=== PATIENT | male | born 1985 | race Caucasian/White ===

== ENCOUNTER 2020-07-13 01:29 | Emergency (ER) | payer OTHER ==
[2020-07-13 01:43] VITALS: BP 131/83; PULSE 60; TEMP 98.1; BMI 27.8
[2020-07-13] MEDS ORDERED: DIPHTH,PERTUSS(ACELL),TET 0.5 ML DISP.SYRIN IM ONE ×2 (02:58→03:28)
[2020-07-13] MEDS ORDERED: ACETAMINOPHEN 325 MG TABLET (FP) PO ONE (02:58)
[2020-07-13] MEDS ORDERED: ACETAMINOPHEN 325 MG TABLET (FP) ONE (03:27)
[2020-07-13] MEDS ORDERED: LIDOCAINE 1%/EPI 1:100000 (20 ML MULTI DOSE VIAL) IJ ONE (04:03)
[2020-07-13] MEDS ORDERED: LIDOCAINE 1%/EPI 1:100000 (20 ML MULTI DOSE VIAL) ONE (04:04)
[2020-07-13] MEDS ORDERED: BACITRACIN 15 GM TUBE TOPICAL OINTMENT TP ONE (04:10)
== END 2020-07-13 04:24 | disposition home or self-care (01) ==
LOC: JER 01:29
PROC: 0JQ10ZZ Repair Face Subcutaneous Tissue and Fascia, Open Approach (ICD-10-PCS; principal; 2020-07-13)
PROC: 3E0234Z Introduction of Serum, Toxoid and Vaccine into Muscle, Percutaneous Approach (ICD-10-PCS; 2020-07-13)
DX: S09.90XA Unspecified injury of head, initial encounter (principal); S01.81XA Laceration without foreign body of other part of head, initial encounter
CPT/HCPCS: 70450-TC; 72125-TC; 90471; 90715; 99285-25

== ENCOUNTER 2020-07-24 09:01 | Emergency (ER) | payer OTHER ==
[2020-07-24 09:24] VITALS: BP 127/83; PULSE 56; TEMP 98; BMI 26.1
== END 2020-07-24 10:25 | disposition home or self-care (01) ==
LOC: JER 09:01 → JERFT 09:01
DX: Z48.02 Encounter for removal of sutures (principal)
CPT/HCPCS: 99281-25

== ENCOUNTER 2021-04-10 21:28 | Emergency (ER) | payer OTHER ==
[2021-04-10 21:41] VITALS: BP 111/74; PULSE 88; TEMP 98.9; BMI 28.3
[2021-04-10] MEDS ORDERED: ONDANSETRON 4 MG/2 ML VIAL IVPUSH ONE (23:41)
[2021-04-10] MEDS ORDERED: SODIUM CHLORIDE 1,000 ML IV STA (23:41)
[2021-04-10] MEDS ORDERED: FAMOTIDINE 20 MG/50 ML IVPB 20 MG/50 ML MG IVPB ONE (23:41)
[2021-04-11] MEDS ORDERED: FAMOTIDINE 20 MG/50 ML IVPB 20 MG/50 ML MG IVPB ONE (00:03)
[2021-04-11 00:36] LABS: BASO % 0.1 % (0-2.0); EOS % 0.1 % (0-4.5); HEMATOCRIT 49.3 % (35.4-49); LYMPH % 5.3 % (8-40); MCH 30.4 pg (25.7-33.7); MCHC 34.5 g/dl (32.0-35.9); MEAN CELL VOLUME 88.3 fl (80-96); MEAN PLT VOLUME 9.2 fl (7.5-11.1); MONO % 3.6 % (3.8-10.2); NEUT % 90.9 % (42.8-82.8); PLATELET COUNT 197 10^3/uL (134-434); RBC 5.58 M/mm3 (4.00-5.60); RDW 13.2 % (11.9-15.9); WHITE BLOOD COUNT 9.9 K/mm3 (4.0-10.0)
[2021-04-11 01:06] LABS: ALBUMIN 4.9 g/dl (3.4-5.0); BLOOD UREA NITROGEN 33.3 mg/dL (7-18)
[2021-04-11 01:08] LABS: CREATININE 1.8 mg/dL (0.55-1.3)
[2021-04-11 01:10] LABS: BILIRUBIN,TOTAL 0.7 mg/dL (0.2-1); TOT PROT 9.3 g/dl (6.4-8.2)
[2021-04-11 03:46] LABS: URINE APPEARANCE CLEAR; URINE BILIRUBIN NEGATIVE (NEGATIVE); URINE COLOR YELLOW; URINE GLUCOSE (UA) NEGATIVE (NEGATIVE); URINE KETONE NEGATIVE (NEGATIVE); URINE LEUK ESTERASE NEGATIVE (NEGATIVE); URINE NITRITE NEGATIVE (NEGATIVE); URINE PROTEIN NEGATIVE (NEGATIVE); URINE UROBILINOGEN 0.2 mg/dL (0.2-1.0)
[2021-04-11 04:12] LABS: BLOOD UREA NITROGEN 24.5 mg/dL (7-18)
[2021-04-11 04:15] LABS: CREATININE 1.1 mg/dL (0.55-1.3)
[2021-04-11 04:40] LABS: CALCIUM 7.2 mg/dL (8.5-10.1)
[2021-04-12 12:07] LABS: SARS-CoV-2 NAA Not Detected (Not Detected)
== END 2021-04-11 04:39 | disposition home or self-care (01) ==
LOC: JER 21:28
PROC: 3E033GC Introduction of Other Therapeutic Substance into Peripheral Vein, Percutaneous Approach (ICD-10-PCS; principal; 2021-04-10)
PROC: 3E033GC Introduction of Other Therapeutic Substance into Peripheral Vein, Percutaneous Approach (ICD-10-PCS; 2021-04-10)
PROC: 3E0337Z Introduction of Electrolytic and Water Balance Substance into Peripheral Vein, Percutaneous Approach (ICD-10-PCS; 2021-04-10)
DX: E86.0 Dehydration (principal)
CPT/HCPCS: 36415; 80048; 80053; 81003; 83690; 85025; 99284-25; C9803; U0003; U0005

== ENCOUNTER 2022-07-26 14:09 | Emergency (ER) | payer OTHER ==
[2022-07-26 14:14] VITALS: BP 120/70; PULSE 61; RESP 18; TEMP 98.6; BMI 28.1
[2022-07-26] MEDS ORDERED: MECLIZINE HCL 25 MG TABLET (FP) PO ONE (14:44)
[2022-07-26] MEDS ORDERED: ONDANSETRON 4 MG/2 ML VIAL IVPUSH ONE (14:44)
[2022-07-26] MEDS ORDERED: SODIUM CHLORIDE 1,000 ML IV STA (14:44)
[2022-07-26] MEDS ORDERED: KETOROLAC TROMETHAMINE 30 MG/1 ML VIAL IVPUSH ONE (14:45)
[2022-07-26] MEDS ORDERED: MECLIZINE HCL 25 MG TABLET (FP) ONE (14:59)
[2022-07-26] MEDS ORDERED: ONDANSETRON 4 MG/2 ML VIAL ONE (14:59)
[2022-07-26] MEDS ORDERED: KETOROLAC TROMETHAMINE 30 MG/1 ML VIAL ONE (14:59)
[2022-07-26 15:10] LABS: BASO % 0.3 % (0-2.0); EOS % 0.4 % (0-4.5); HEMATOCRIT 42.4 % (35.4-49); HEMOGLOBIN 14.8 GM/dL (11.7-16.9); LYMPH % 15.1 % (8-40); MCHC 34.8 g/dl (32.0-35.9); MEAN CELL VOLUME 86.2 fl (80-96); MEAN PLT VOLUME 8.9 fl (7.5-11.1); MONO % 3.8 % (3.8-10.2); NEUT % 80.4 % (42.8-82.8); PLATELET COUNT 222 10^3/uL (134-434); RBC 4.92 M/mm3 (4.00-5.60); RDW 13.2 % (11.9-15.9); WHITE BLOOD COUNT 10.5 K/mm3 (4.0-10.0)
[2022-07-26 15:11] LABS: PH,URINE 8.5 (5.0-8.0); URINE APPEARANCE CLEAR; URINE BILIRUBIN NEGATIVE (NEGATIVE); URINE COLOR YELLOW; URINE GLUCOSE (UA) NEGATIVE (NEGATIVE); URINE KETONE NEGATIVE (NEGATIVE); URINE LEUK ESTERASE NEGATIVE (NEGATIVE); URINE NITRITE NEGATIVE (NEGATIVE); URINE PROTEIN NEGATIVE (NEGATIVE); URINE UROBILINOGEN 0.2 mg/dL (0.2-1.0)
[2022-07-26 15:34] LABS: ALBUMIN 4.3 g/dl (3.4-5.0); BLOOD UREA NITROGEN 12.8 mg/dL (7-18); CALCIUM 9.2 mg/dL (8.5-10.1)
[2022-07-26 15:37] LABS: CREATININE 0.9 mg/dL (0.55-1.3)
[2022-07-26 15:39] LABS: BILIRUBIN,TOTAL 0.6 mg/dL (0.2-1)
== END 2022-07-26 16:35 | disposition home or self-care (01) ==
LOC: JER 14:09
PROC: 3E0333Z Introduction of Anti-inflammatory into Peripheral Vein, Percutaneous Approach (ICD-10-PCS; principal; 2022-07-26)
PROC: 3E033GC Introduction of Other Therapeutic Substance into Peripheral Vein, Percutaneous Approach (ICD-10-PCS; 2022-07-26)
PROC: 3E0337Z Introduction of Electrolytic and Water Balance Substance into Peripheral Vein, Percutaneous Approach (ICD-10-PCS; 2022-07-26)
DX: R11.2 Nausea with vomiting, unspecified (principal); R42 Dizziness and giddiness; H53.71 Glare sensitivity; Z20.822 Contact with and (suspected) exposure to COVID-19
CPT/HCPCS: 0241U-QW; 36415; 80053; 81003; 83690; 85025; 87086; 99284-25

== ENCOUNTER 2022-11-17 11:50 | Observation (INO) | payer OTHER ==
[2022-11-17] MEDS ORDERED: ACETAMINOPHEN 1000 MG/100 ML BAG IVPB ONE (12:40)
[2022-11-17] MEDS ORDERED: ONDANSETRON 4 MG/2 ML VIAL IVPUSH ONE (12:40)
[2022-11-17] MEDS ORDERED: LACTATED RINGERS SOLUTION 1000 ML INFUS.BAG IV ONE (12:40)
[2022-11-17] MEDS ORDERED: ACETAMINOPHEN INJECTION 100 ML IVPB ONE (12:43)
[2022-11-17] MEDS ORDERED: ONDANSETRON 4 MG/2 ML VIAL ONE ×2 (12:43→13:09)
[2022-11-17 13:19] LABS: BASO % 0.4 % (0-2.0); EOS % 0.7 % (0-4.5); HEMATOCRIT 41.6 % (35.4-49); HEMOGLOBIN 14.7 GM/dL (11.7-16.9); LYMPH % 18.4 % (8-40); MCH 30.6 pg (25.7-33.7); MCHC 35.4 g/dl (32.0-35.9); MEAN CELL VOLUME 86.2 fl (80-96); MEAN PLT VOLUME 9.1 fl (7.5-11.1); MONO % 4.7 % (3.8-10.2); NEUT % 75.8 % (42.8-82.8); PLATELET COUNT 199 10^3/uL (134-434); RBC 4.83 M/mm3 (4.00-5.60); WHITE BLOOD COUNT 12.4 K/mm3 (4.0-10.0)
[2022-11-17 13:52] LABS: POTASSIUM 3.2 mmol/L (3.5-5.1)
[2022-11-17 13:54] LABS: ALBUMIN 4.3 g/dl (3.4-5.0); BLOOD UREA NITROGEN 13.2 mg/dL (7-18); CALCIUM 9.1 mg/dL (8.5-10.1)
[2022-11-17 13:57] LABS: CREATININE 0.9 mg/dL (0.55-1.3)
[2022-11-17 13:59] LABS: BILIRUBIN,TOTAL 0.7 mg/dL (0.2-1)
[2022-11-17 14:26] LABS: PH,URINE >= 9.0 (5.0-8.0); URINE APPEARANCE CLEAR; URINE BILIRUBIN NEGATIVE (NEGATIVE); URINE COLOR YELLOW; URINE GLUCOSE (UA) NEGATIVE (NEGATIVE); URINE KETONE NEGATIVE (NEGATIVE); URINE LEUK ESTERASE NEGATIVE (NEGATIVE); URINE NITRITE NEGATIVE (NEGATIVE); URINE PROTEIN NEGATIVE (NEGATIVE); URINE UROBILINOGEN 0.2 mg/dL (0.2-1.0)
[2022-11-17] MEDS ORDERED: PIPERACILLIN/TAZOB 4.5 GM 4.5 GM in DEXTROSE 5%-WATER 100 ML IVPB ONE (17:36)
[2022-11-17] MEDS ORDERED: PIPERACILLIN/TAZOB 4.5 GM 4.5 GM/100 ML BAG IVPB ONE (18:05)
[2022-11-17] MEDS ORDERED: SODIUM CHLORIDE 0.45% 1,000 ML IV SCH (18:15)
[2022-11-17] MEDS ORDERED: BUPIVACAINE HCL/PF 0.25% (2.5MG/ML) 10 ML VIAL ONE (18:25)
[2022-11-17] MEDS ORDERED: ACETAMINOPHEN 1000 MG/100 ML BAG IVPB PRN (18:25)
[2022-11-17] MEDS ORDERED: ONDANSETRON 4 MG/2 ML VIAL IVPUSH PRN ×2 (18:25→20:40)
[2022-11-17] MEDS ORDERED: BUPIVACAINE HCL/PF 0.5% (5MG/ML) 10 ML VIAL ONE (18:45)
[2022-11-17] MEDS ORDERED: SUCCINYLCHOLINE CHLORIDE 200 MG/10 ML SYRINGE ONE (18:49)
[2022-11-17] MEDS ORDERED: MIDAZOLAM HCL 2 MG/2 ML SINGLE DOSE VIAL ONE (18:50)
[2022-11-17] MEDS ORDERED: ROCURONIUM BROMIDE 50 MG/5 ML SYRINGE ONE (18:50)
[2022-11-17] MEDS ORDERED: LIDOCAINE HCL 1%, 10 MG/ML (20ML VIAL) NR ONE ×2 (19:16)
[2022-11-17] MEDS ORDERED: BUPIVACAINE HCL/PF 0.5% (5 MG/ML) 30 ML VIAL IJ ONE ×2 (19:16)
[2022-11-17] MEDS ORDERED: NEOSTIGMINE METHYLSULFATE 0.5 MG/1 ML - 10 ML MDV ONE (19:36)
[2022-11-17] MEDS ORDERED: LACTATED RINGERS SOLUTION 1,000 ML/1,000 ML INFUS.BAG IV SCH (20:15)
[2022-11-17] MEDS ORDERED: NALOXONE HCL 0.4 MG/ML VIAL ONE (20:17)
[2022-11-17] MEDS ORDERED: oxyCODONE HCL 5 MG TABLET PO PRN (20:29)
[2022-11-17 22:34] VITALS: BMI 29.9
[2022-11-17] MEDS ORDERED: VANCOMYCIN 1 GM PREMIX - 1 GM/200 ML BAG IVPB ONE (23:23)
[2022-11-18] MEDS ORDERED: PIPERACILLIN/TAZOB 4.5 GM 4.5 GM in DEXTROSE 5%-WATER 100 ML IVPB ONE (02:00)
[2022-11-18] MEDS: ACETAMINOPHEN 1000 MG/100 ML BAG IVPB PRN ×2 (02:29→07:39)
[2022-11-18 06:29] VITALS: PULSE 58
[2022-11-18 06:49] LABS: BASO % 0.1 % (0-2.0); HEMATOCRIT 40.2 % (35.4-49); HEMOGLOBIN 13.6 GM/dL (11.7-16.9); LYMPH % 10.6 % (8-40); MCH 29.6 pg (25.7-33.7); MCHC 33.8 g/dl (32.0-35.9); MEAN CELL VOLUME 87.6 fl (80-96); MEAN PLT VOLUME 9.5 fl (7.5-11.1); MONO % 2.6 % (3.8-10.2); NEUT % 86.7 % (42.8-82.8); PLATELET COUNT 176 10^3/uL (134-434); RBC 4.59 M/mm3 (4.00-5.60); RDW 12.9 % (11.9-15.9); WHITE BLOOD COUNT 11.4 K/mm3 (4.0-10.0)
[2022-11-18 07:07] LABS: POTASSIUM 4.1 mmol/L (3.5-5.1)
[2022-11-18 07:09] LABS: CALCIUM 8.3 mg/dL (8.5-10.1); MAGNESIUM 2.1 mg/dL (1.8-2.4)
[2022-11-18 07:10] LABS: BLOOD UREA NITROGEN 10.6 mg/dL (7-18)
[2022-11-18 07:12] LABS: CREATININE 0.9 mg/dL (0.55-1.3); PHOSPHOROUS 4.8 mg/dL (2.5-4.9)
[2022-11-18 07:14] LABS: TOT PROT 6.8 g/dl (6.4-8.2)
[2022-11-18 07:19] LABS: ALBUMIN 3.4 g/dl (3.4-5.0)
[2022-11-18 07:43] LABS: ARTERIAL BLD GAS O2 SATURATION 98.9 % (95-98); ARTERIAL BLOOD GAS BASE EXCESS -0.8 mmol/L (-2-2); ARTERIAL BLOOD GAS PO2 142.6 mmHg (80-100); ARTERIAL BLOOD GAS pH 7.416 (7.350-7.450)
[2022-11-18 07:44] LABS: VENT MODE S/T; VENT RATE 14
[2022-11-18 09:31] VITALS: BP 124/69; RESP 18; TEMP 98
[2022-11-18] MEDS ORDERED: ENOXAPARIN NA (PORCINE) 40 MG/0.4 ML DISP.SYRIN SQ SCH (10:00)
== END 2022-11-18 12:45 | disposition home or self-care (01) ==
LOC: JER 11:50 → JERBED 17:36 → JICU 22:17
PROVIDERS: ADMIT Internal Medicine; ATTEND Internal Medicine Pulmonary Disease
PROC: 3E033NZ Introduction of Analgesics, Hypnotics, Sedatives into Peripheral Vein, Percutaneous Approach (ICD-10-PCS; 2022-11-17)
PROC: 3E0337Z Introduction of Electrolytic and Water Balance Substance into Peripheral Vein, Percutaneous Approach (ICD-10-PCS; 2022-11-17)
PROC: 3E033GC Introduction of Other Therapeutic Substance into Peripheral Vein, Percutaneous Approach (ICD-10-PCS; 2022-11-17)
PROC: 3E03329 Introduction of Other Anti-infective into Peripheral Vein, Percutaneous Approach (ICD-10-PCS; 2022-11-17)
PROC: 0DTJ4ZZ Resection of Appendix, Percutaneous Endoscopic Approach (ICD-10-PCS; principal; 2022-11-17 18:30)
DX: K35.30 Acute appendicitis with localized peritonitis, without perforation or gangrene (principal); J81.0 Acute pulmonary edema; R09.02 Hypoxemia; J95.89 Other postprocedural complications and disorders of respiratory system, not elsewhere classified
CPT/HCPCS: 0241U-QW; 36415; 36600; 71045-TC-FY; 74177-TC; 80053; 81003; 82803; 83036; 83690; 83735; 84100; 85025; 87040; 94660; 94760; 96361; 96365; 96367; 96375; 96376; 99285-25; G0378; Q9967